=== PATIENT | female | born 1965 | race Caucasian/White ===

== ENCOUNTER 2022-04-18 07:36 | Day surgery (SDC) | payer BC ==
[~2022-04-18 07:36] MED LIST: Lactated Ringers 1,000 ML IV SCH; Lidocaine 1%/Sod Bicarbonate in NS 8.4% 1 ML Syringe IDERM PRN; Sodium Chloride 0.9% 10 ML Syringe FLUSH PRN; Sodium Chloride 0.9% 10 ML Syringe FLUSH SCH
[2022-04-18] MEDS ORDERED: Propofol 200 MG/20 ML SDV ONE ×2 (09:38)
[2022-04-18] MEDS ORDERED: Ondansetron 4 MG/2 ML SDV ONE (09:38)
[2022-04-18] MEDS ORDERED: Lidocaine 1% 2 ML ONE (09:42)
== END 2022-04-18 11:05 | disposition home or self-care (01) ==
LOC: JD.SDS 07:36
PROVIDERS: ATTEND Surgery
DX: Z12.11 Encounter for screening for malignant neoplasm of colon (principal); D12.2 Benign neoplasm of ascending colon; D12.4 Benign neoplasm of descending colon; G43.909 Migraine, unspecified, not intractable, without status migrainosus; F32.A Depression, unspecified; M19.90 Unspecified osteoarthritis, unspecified site; Z80.0 Family history of malignant neoplasm of digestive organs; Z88.1 Allergy status to other antibiotic agents; Z79.899 Other long term (current) drug therapy
CPT/HCPCS: 45385; J2405; J2704; J7120; 00812